=== PATIENT | male | born 1985 | race Caucasian/White ===

== ENCOUNTER 2018-12-19 02:58 | Emergency (ER) | payer MEDICAID ==
[~2018-12-19] VITALS: Ht 175.3 cm; Wt 63.5 kg
[~2018-12-19 02:58] MED LIST: IBUP-1051 PO
[2018-12-19 03:05] VITALS: BP 135/84
[2018-12-19] MEDS ORDERED: AMOX500C2 PO (03:16)
== END 2018-12-19 03:59 | disposition home or self-care (01) ==
LOC: ER 02:58
DX: K08.89 Other specified disorders of teeth and supporting structures (principal); Z79.2 Long term (current) use of antibiotics; Z79.899 Other long term (current) drug therapy; Z56.0 Unemployment, unspecified
CPT/HCPCS: 99283